=== PATIENT | female | born 1970 | race Caucasian/White ===

== ENCOUNTER 2021-08-14 16:38 | Emergency (ER) | payer OTHER ==
[~2021-08-14] VITALS: Ht 160 cm; Wt 65.8 kg
[2021-08-14 16:39] VITALS: BP_SYST 131
[2021-08-14] MEDS ORDERED: KETOROLAC TROMETHAMINE 60 MG/2 ML VIAL IM ONE (17:00)
[2021-08-14] MEDS ORDERED: IBUP-1969 PO (18:15)
[2021-08-14] MEDS ORDERED: HYDR-3917 PO (18:15)
== END 2021-08-14 18:22 | disposition home or self-care (01) ==
LOC: SED 16:38
DX: S93.401A Sprain of unspecified ligament of right ankle, initial encounter (principal); R07.89 Other chest pain; V49.49XA Driver injured in collision with other motor vehicles in traffic accident, initial encounter; Y93.89 Activity, other specified; Y92.89 Other specified places as the place of occurrence of the external cause; Y99.8 Other external cause status
CPT/HCPCS: 71045; 73610; 96372; 99284; J1885